=== PATIENT | female | born 1985 | race Caucasian/White ===

== ENCOUNTER 2016-12-13 10:15 | Emergency (ER) | payer OTHER ==
[~2016-12-13] VITALS: Ht 160 cm; Wt 70.9 kg
[2016-12-13 10:21] VITALS: BP 126/88; PULSE 90; RESP 10; O2SAT 100
--- NOTE | 2016-12-13 10:31 | ED.REPORT ---
HPI-Abd Pain F Under 40 Date of Service Dec 13, 2016 ED Provider: Reza Hemphill DO A 31 year old female with a history of kidney stones presents to the ED complaining of RLQ abdominal pain that began at 0400 this morning. She also reports mild discomfort during urination. Patient has never felt any similar previous abdominal pain and her pain is exacerbated by movement. Patient reports possibility of and is not currently taking control. Her last menstrual cycle was November 28. She denies fever, vomiting, diarrhea, abnormal vaginal discharge, vaginal bleeding, SOB or hematuria. Patient denies any recent trauma. Nursing Notes Stated Complaint: LOWER RIGHT ABDOMINAL AND BACK PAIN Chief Complaint: Female Abdominal Pain Nursing Notes Reviewed: Yes Allergies: Coded Allergies: amoxicillin (Verified Allergy, Intermediate, 11/05/15) bacitracin (Verified Allergy, Intermediate, 11/05/15) neomycin (Verified Allergy, Intermediate, 11/05/15) polymyxin B (Verified Allergy, Intermediate, 11/05/15) iodine (Verified Allergy, Unknown, 11/05/15) Scheduled PRN Hydrocodone-Acetaminophen 5-325 mg (Hydrocodone-Acetaminophen 5-325 mg) 1 Each Tablet 1-2 TABLET PO QID PRN PRN For Pain Ondansetron ODT (Zofran ODT) 4 Mg Tablet 4 MG PO Q4H PRN PRN For Nausea General Time Seen by MD: 10:28 Chief Complaint Abdominal pain Hx Obtained From: Patient Arrived By: Walk-in Sudden in Onset?: Yes Onset Occurred: 5 - 8 hours ago (0400) Symptom Duration: Since onset Progression since Onset: Unchanged Location: : RLQ Quality: Painful Radiation: : Does not radiate Severity: Current: Moderate Severity: Maximum: Moderate Associated with: Reports: Dysuria, Denies: Fever, Hematuria, Shortness of breath, Urinary tract symptoms, Vaginal bleeding, Vaginal discharge, Vomiting Pertinent Negative: Pt denies other symptoms Sexual History / Control: Reports Pt is sexually active, Denies control pills Exacerbated by: Movement Recent Healthcare: No recent doctor visit, No recent hospitalization Risk Factors Ectopic Risk Stratification Risk factors reviewed Past Medical History Past Medical History Anxiety Kidney Stones Past Surgical History None reported Smoking History Unknown if Ever Smoker Social History Other Social History: Good social support, Local resident Ambulatory Status Independent Review of Systems Constitutional: Denies: Chills, Fever Respiratory: Denies: Shortness of breath Cardiovascular: Denies: Chest pain GI: Reports: Abdominal pain, Denies: Diarrhea, Nausea, Vomiting Female: Reports: Dysuria (discomfort during urination ), Denies: Hematuria, Vaginal bleeding - abnl, Vaginal discharge Complete sys rev & neg: except as marked. Physical Exam Initial Vital Signs Vital Signs (First) Date Time Temp Pulse Resp B/P Pulse Ox O2 Delivery O2 Flow Rate FiO2 12/13/16 10:21 36.3 90 10 126/88 100 Room Air Initial VS: Reviewed Head / Eyes: Atraumatic, Normocephalic, PERRL Extremities: Vascular intact, Neuro intact, No swelling, No tenderness Skin: Warm, Dry, No cyanosis Neurologic: Alert, Oriented, Nonfocal Psychiatric: Mood/affect normal, Behavior normal, Normal thought content General/Constitutional: Awake, Alert, No acute distress Respiratory / Chest: Atraumatic, Breath sounds NL, Breath sounds = bilat Cardiovascular: Heart rate NL, Regular rhythm, Heart sounds NL Abdomen: Atraumatic, Soft Tenderness/Guarding/Rebound: Positive: Guarding involuntary, Tender RLQ... Back: Atraumatic, Inspection NL, No CVA tenderness Interpretation & Diagnostics Lab Results Interpretation Result Diagram: 12/13/16 1120 12/13/16 1120 Test 12/13/16 10:56 12/13/16 11:20 12/13/16 11:21 Hold Urine Received (Received) White Blood Count 5.5th/mm3 (3.8-10.1) Red Blood Count 4.56mil/mm3 (3.90-5.20) Hemoglobin 13.8g/dL (12.0-15.6) Hematocrit 40.2% (35.0-46.0) Mean Corpuscular Volume 88.2fL (81-100) Mean Corpuscular Hemoglobin 30.3pg (27.0-35.0) Mean Corpuscular Hemoglobin Concent 34.3% (32.0-37.0) Red Cell Distribution Width 12.9% (12.3-15.4) Platelet Count 259bil/L (150-400) Neutrophils (%) (Auto) 54.7% (40-74) Lymphocytes (%) (Auto) 32.4% (14-46) Monocytes (%) (Auto) 9.8% (4-12) Eosinophils (%) (Auto) 2.7% (0-5) Basophils (%) (Auto) 0.4% (0-3) Sodium Level 138mEq/L (134-144) Potassium Level 3.8mEq/L (3.5-5.2) Chloride Level 101mEq/L (97-108) Carbon Dioxide Level 24mmol/L (18-29) Blood Urea Nitrogen 9mg/dL (6-20) Creatinine 0.75mg/dL (0.57-1.00) Estimat Glomerular Filtration Rate 130mL/min (>59) Glucose Level 85mg/dL (60-99) Calcium Level 9.1mg/dL (8.5-10.1) Magnesium Level 1.8mg/dL (1.6-2.6) Total Bilirubin 0.2mg/dL (0.0-1.2) Aspartate Amino Transf (AST/SGOT) 16U/L (0-50) Alanine Aminotransferase (ALT/SGPT) 14U/L (0-32) Alkaline Phosphatase 59U/L (25-150) Total Protein 7.1g/dL (6.4-8.4) Albumin 4.4g/dL (3.4-5.0) Lipase 45U/L (13-60) Hold Beavers Top Tube Received (Received) CT Abd / Pelvis Interpretation IMPRESSION: 1. Small, 1-2 mm in diameter, bilateral, nonobstructing renal stones. 2. No hydronephrosis. 3. No evidence of appendicitis. Dictated by: Rin Rodgers MD, PhD on 12/13/2016 at 11:25 Study type: Abdominal CT no contrast Interpretation / Wet Read by: Interpret - Radiologist Re-Eval/Medical Decision Med Decision/Clinical Course Med Decision/Clinical Course: No obvious signs of appendicitis or other life-threatening pathology on CAT scan, pain improved, we will plan to discharge with pain and nausea medication and recommend very close follow-up on the off chance that this is very early appendicitis or other pathology. Re-Evaluation/Progress : Time of Eval: 11:44 Patient Status: Pain worse Re-Evaluation/Progress Note: Patient is rechecked. Her pain is still present. Repeat exam reveals mild RLQ abdominal tenderness. She is informed of her lab results, CT results and diagnosis. All of the patient's questions are adressed. She understands and agrees with the treatment plan to discharge. Counseled Regarding: Diagnosis, Lab results, Need for follow-up, When/why to return to ED Discharge & Departure Primary Impression: Nonspecific abdominal pain Disposition: Home Discharge Condition All VS Reviewed: Yes Condition: Improved Patient Instructions: Appendicitis (ED) Additional Instructions: Thank you for trusting us with your care this morning. Your lab work and abdominal CT is reassuring that there is no dangerous cause for concern at this time. Please take 1-2 Zofran every 8 hours as needed for nausea and take Vicodin as prescribed. I recommend you follow up in the next 12-24 hours for a recheck in the ER. Please return to the emergency department sooner for any new or worsening conditions including any high fever, chills, severe abdominal pain, or lethargy. Referrals: Alyssa Sheffield (PCP) Berta Attestation Portions of this note were transcribed by Chava Swartz. I, Dr. Hemphill personally performed the history, physical exam and medical decision-making; I reviewed and confirmed the accuracy of the information in the transcribed note. Signed by: Berta Roman, 12/13/16 [id number]. copies to: Alyssa Sheffield Timothy S DO Dec 13, 2016 10:30 CHAVA SWARTZ Dec 13, 2016 10:41
[2016-12-13] MEDS ORDERED: 0.9% Sodium Chloride 1,000 ML IV ONE (10:44)
[2016-12-13] MEDS ORDERED: Ondansetron 2 mg/mL 2 mL Inj IVPUSH PRN (10:45)
[2016-12-13] MEDS ORDERED: Ketorolac 15 mg/mL Inj IVPUSH ONE (10:45)
[2016-12-13] MEDS ORDERED: HYDROmorphone 0.5 mg/0.5 mL iSecure Syringe IVPUSH PRN (10:45)
[2016-12-13 11:26] LABS: BASOPHILS % (AUTO) 0.4 % (0-3); EOSINOPHILS % (AUTO) 2.7 % (0-5); MONOCYTES % (AUTO) 9.8 % (4-12); Mean Corpuscular Hemoglobin 30.3 pg (27.0-35.0); Mean Corpuscular Volume 88.2 fL (81-100); NEUTROPHILS % (AUTO) 54.7 % (40-74); Platelet Count 259 bil/L (150-400)
--- NOTE | 2016-12-13 11:32 | DRSVH ---
PROCEDURE: CT KUB ([id number]) INDICATIONS: RLQ pain, iodine allergy TECHNIQUE: Noncontrast 5 mm thick sections acquired from the diaphragms to the symphysis. 5 mm thick coronal an d sagittal reformats were then performed. For radiation dose reduction, the following was used: aut omated exposure control, adjustment of mA and/or kV according to patient size. COMPARISON: None. FINDINGS: Image quality: Excellent. Lung bases: Lung bases are clear. Heart size is normal. Urinary system: Both kidneys are normal in size. Small, approximately 1-2 mm in diameter nonobstruct ing right renal stones are noted. Small, approximately 1 mm diameter nonobstructing left renal stone s are noted. No hydronephrosis or perinephric fat stranding. Both ureters appear non-dilated throug hout their expected courses. Bladder wall thickness is normal; no calcified bladder stones. Other solid organs: Liver and spleen are normal in size. Gallbladder is within normal limits. Panc reas is normal in contours. No adrenal nodules. Peritoneum and bowel: Unenhanced bowel loops demonstrate normal wall thickness and caliber. Small a mount free fluid noted in the pelvis which is within physiologic limits for female reproductive age. No free air. The appendix is normal. Nodes and vessels: No retroperitoneal or mesenteric adenopathy by size criteria. Aorta and inferior vena cava are normal in caliber. Abdominal wall: No ventral hernias. Pelvis: No free pelvic fluid. No inguinal hernias or adenopathy. Bones: No suspicious bony lesions. No vertebral body compression fractures. IMPRESSION: 1. Small, 1-2 mm in diameter, bilateral, nonobstructing renal stones. 2. No hydronephrosis. 3. No evidence of appendicitis. Dictated by: Rin Rodgers MD, PhD on 12/13/2016 at 11:25 Approved by: Rin Rodgers MD, PhD on 12/13/2016 at 11:30
[2016-12-13 11:56] LABS: Magnesium 1.8 mg/dL (1.6-2.6)
[2016-12-13] MEDS ORDERED: ONDA4TAB9 PO (12:18)
[2016-12-13] MEDS ORDERED: HYDR-4003 PO (12:18)
[2016-12-13 12:32] VITALS: BP 122/79; PULSE 82; RESP 16; O2SAT 100
== END 2016-12-13 12:47 | disposition home or self-care (01) ==
LOC: SED 10:15
DX: R10.31 Right lower quadrant pain (principal); Z87.442 Personal history of urinary calculi; Z88.1 Allergy status to other antibiotic agents; Z88.8 Allergy status to other drugs, medicaments and biological substances; Z91.041 Radiographic dye allergy status
CPT/HCPCS: 36415; 74176; 80053; 81002; 81025; 83690; 83735; 85025; 96361; 96374; 96375; 99285; J1170; J1885; J2405; J7030

== ENCOUNTER 2017-02-04 18:00 | Emergency (ER) | payer OTHER ==
[~2017-02-04] VITALS: Ht 160 cm; Wt 67.7 kg
[~2017-02-04 18:00] MED LIST: HYDR-4003 PO; ONDA4TAB9 PO
[2017-02-04 18:05] VITALS: BP 123/84; PULSE 74; RESP 20; O2SAT 100
[2017-02-04] MEDS ORDERED: 0.9% Sodium Chloride 1,000 ML IV ONE ×2 (18:57→20:15)
[2017-02-04] MEDS ORDERED: Magnesium Sulf 2 Gm/50mL Water 2 GM in IV Premix 1 EACH IV ONE (19:00)
[2017-02-04] MEDS ORDERED: MetoCLOpramide 5 mg/mL 2 mL Inj IVPUSH ONE (19:00)
[2017-02-04] MEDS ORDERED: Dexamethasone 10 mg/mL Inj IVPUSH ONE (19:00)
--- NOTE | 2017-02-04 19:00 | ED.REPORT ---
HPI-Headache Date of Service February 04, 2017 ED Provider: Imer Murillo PA-C Otherwise healthy 31-year-old female presenting with chief complaint of headache. She reports this began about 4 hours ago first notices a mild headache that rapidly progressed to severe headache over approximately one half hour. Patient felt that she would collapse. Associated with blurred vision, photophobia. Describes her headache as throbbing in the midline of her forehead. Denies history of migraines or similar headaches. Admits nausea, denies vomiting. Denies recent chiropractic manipulations. Denies fever, chest pain, palpitation, shortness of breath, cough, wheeze, rash, neck stiffness. She reports headache is improving at time of presentation. Nursing Notes Stated Complaint: HEAD PAIN, NAUSEA, DIZZINESS Chief Complaint: Headache Nursing Notes Reviewed: Yes Allergies: Coded Allergies: amoxicillin (Verified Allergy, Intermediate, 11/05/15) bacitracin (Verified Allergy, Intermediate, 11/05/15) neomycin (Verified Allergy, Intermediate, 11/05/15) polymyxin B (Verified Allergy, Intermediate, 11/05/15) iodine (Verified Allergy, Unknown, 11/05/15) Scheduled PRN Hydrocodone-Acetaminophen 5-325 mg (Hydrocodone-Acetaminophen 5-325 mg) 1 Each Tablet 1-2 TABLET PO QID PRN PRN For Pain Ondansetron ODT (Zofran ODT) 4 Mg Tablet 4 MG PO Q4H PRN PRN For Nausea General Time Seen by MD: 18:52 Chief Complaint Headache Sudden in Onset?: Yes Past Medical History Past Medical History Anxiety Kidney Stones Past Surgical History None reported Smoking History Unknown if Ever Smoker Social History Other Social History: Good social support, Local resident Ambulatory Status Independent Review of Systems Review of Systems Note: Negative unless stated otherwise in history of present illness Physical Exam General: Well appearing, well developed, well nourished, no acute distress. Head: Atraumatic, normocephalic. Eyes: No scleral icterus or injection. No discharge. Vision grossly intact. ENT: Voice clear, hearing grossly intact. Respiratory: Regular rate and rhythm. Breath sounds present, clear to auscultation and equal bilaterally. No respiratory distress. No increased work of breathing, speaks in complete sentences. Cardiovascular: Regular rate and rhythm, without murmur, gallop or rub. No pedal edema. Gastrointestinal: Abdomen flat and non-tender without guarding or rebound. Bowel sounds normoactive. Skin: Warm and dry. Neurological: Normal heel-zamarripa, finger-nose, rapid hand. Negative pronator drift. Cranial nerves: Vision grossly intact, PERRL, EOMI. Facial motion symmetrical, sensation to light touch over forehead, maxilla and mandible present and equal B /L. Voice clear and fluent, no drooling/pooling of saliva, uvula rises midline. Psychological: Alert and oriented. Speech appropriate, linear and logical. Behavior appropriate. Initial Vital Signs Vital Signs (First) Date Time Temp Pulse Resp B/P Pulse Ox O2 Delivery O2 Flow Rate FiO2 02/04/17 18:05 37.4 74 20 123/84 100 Room Air Initial VS: Vital signs normal Interpretation & Diagnostics Lab Results Interpretation Result Diagram: 02/04/17185402/04/171854 Test 02/04/17 18:55 02/04/17 19:39 02/04/17 22:45 White Blood Count 4.8th/mm3 (3.8-10.1) Red Blood Count 4.43mil/mm3 (3.90-5.20) Hemoglobin 13.4g/dL (12.0-15.6) Hematocrit 38.8% (35.0-46.0) Mean Corpuscular Volume 87.6fL (81-100) Mean Corpuscular Hemoglobin 30.2pg (27.0-35.0) Mean Corpuscular Hemoglobin Concent 34.5% (32.0-37.0) Red Cell Distribution Width 12.8% (12.3-15.4) Platelet Count 236bil/L (150-400) Neutrophils (%) (Auto) 45.4% (40-74) Lymphocytes (%) (Auto) 40.2% (14-46) Monocytes (%) (Auto) 10.9% (4-12) Eosinophils (%) (Auto) 2.9% (0-5) Basophils (%) (Auto) 0.4% (0-3) Sodium Level 141mEq/L (134-144) Potassium Level 3.7mEq/L (3.5-5.2) Chloride Level 104mEq/L (97-108) Carbon Dioxide Level 23mmol/L (18-29) Blood Urea Nitrogen 13mg/dL (6-20) Creatinine 0.70mg/dL (0.57-1.00) Estimat Glomerular Filtration Rate 141mL/min (>59) Glucose Level 103mg/dL (60-99) Calcium Level 9.5mg/dL (8.5-10.1) Hold Baevers Top Tube Received (Received) Hold Urine Received (Received) CSF Appearance Clear (CLEAR) CSF Color Colorless (COLORLESS) CSF WBC 0/mm3 (0-5) CSF RBC 82/mm3 CSF Mononuclear WBCs % CSF Polynuclear WBCs % CSF Other Cells CSF Glucose 59mg/dL (45-90) CSF Total Protein 24mg/dL (15-45) CT Head Interpretation PROCEDURE: CT BRAIN WITHOUT CONTRAST ([id number]) INDICATIONS: headache IMPRESSION: 1. No acute intracranial abnormalities. Interpretation / Wet Read by: Interpret - Radiologist, Interp - P Procedures Lumbar Puncture Text / Dict Note: Performed by Dr. Cox Time: 22:50 Procedure Performed by: ED physician (Dr. Cox) Consent / Setup / Site Prep: Informed consent provided, Consent from patient , Time-out performed, Hand hygiene observed, Stand sterile technique, Sterile drapes applied Skin Preparation Agent: Hibiclens - Chlorhexidine Local Anesthesia: Lidocaine 1% Inserted Needle at: L3 L4 Post-Procedure / Complications: Antibiotic oint applied, Dressing applied, No complications, Tolerated procedure well, Patient stable Re-Eval/Medical Decision Re-Evaluation/Progress #1: Time of Eval: 21:33 Re-Evaluation/Progress Note: Patient resolved her headache has resolved but she is quite drowsy. Discussed normal CT findings, offered lumbar puncture. Patient consents to lumbar puncture. Re-Evaluation/Progress #2: Time of Eval: 22:50 Re-Evaluation/Progress Note: Pt care transferred to Dr. Cox. Lumbar puncture performed by Dr. Cox with pt consent. Re-Evaluation/Progress #3: Time of Eval: 23:34 Re-Evaluation/Progress Note: Pt rechecked. Discussed plan to re-evaluate labs due to RBC in CSF. Discussed possibility of CTA. Pt understands and agrees with plan. Discharge & Departure Shift Change Sign-Out Patient Care Transferred: Yes (Dr. Cox) Discussed Complaint(s): Yes Laboratory Evaluation: Lab evaluation discussed Imaging Studies: Imaging discussed Response to Therapy: Improved, Discussed Impression: Primary Impression: Headache Headache type: primary thunderclap headache Qualified Code: G44.53 - Primary thunderclap headache Disposition: Home Discharge Condition All VS Reviewed: Yes Condition: Stable Patient Instructions: Acute Headache (GEN) Additional Instructions: The CAT scan and cerebrospinal fluid were normal. No signs of a tumor, hemorrhage or infection. Read the aftercare instructions on headache given. You may have some back pain tomorrow for which you may take 1-2 [place] every 6 hours. Drink caffeinated beverages to help prevent spinal headache. Stay well hydrated. Rest tomorrow. Return if any problems or any worsening symptoms. Do not drive or drink or consume acetaminophen while taking the [place]. Take 1 Zofran every 8 hours for any nausea you may have. Referrals: Alyssa Sheffield (PCP) EDSupervising Provider for APC: Shalom Cox Attestation Portions of this note were transcribed by Michaela Douglas. I, Dr. Cox personally performed the history, physical exam and medical decision-making; I reviewed and confirmed the accuracy of the information in the transcribed note. Signed by : Berta Miranda, 02/04/17 and [id number]. Attending Statement I took a history of performing exam. I concur that a lumbar puncture was necessary to rule out subarachnoid hemorrhage. Ensure this a 31-year-old female who developed abrupt onset/thunderclap headache. Headache is unlike anything she suffered with before. CT scan was normal. Labs are reassuring. I performed a meticulously sterile lumbar puncture with one attempt. Normal opening and closing pressures. She tolerated it well. CSF showed no white or 80 reds in tube 3 this when and 8 reds in tube 4. This is consistent with a traumatic tap not consistent with subarachnoid hemorrhage. She will be discharged home. Take home pack of [place] provided for the pain at the lumbar puncture may cause. Close outpatient follow-up recommended. copies to: Alyssa Sheffield Seth PA-C February 04, 2017 18:59 MICHAELA DOUGLAS February 04, 2017 22:59 Shalom Cox DO February 04, 2017 23:22
[2017-02-04 19:08] LABS: BASOPHILS % (AUTO) 0.4 % (0-3); EOSINOPHILS % (AUTO) 2.9 % (0-5); MONOCYTES % (AUTO) 10.9 % (4-12); Mean Corpuscular Hemoglobin 30.2 pg (27.0-35.0); Mean Corpuscular Volume 87.6 fL (81-100); NEUTROPHILS % (AUTO) 45.4 % (40-74); Platelet Count 236 bil/L (150-400)
[2017-02-04] MEDS ORDERED: Dexamethasone Inj 10 MG in 0.9% Sodium Chloride 50 ML IV ONE (19:15)
--- NOTE | 2017-02-04 21:19 | DRSVH ---
PROCEDURE: CT BRAIN WITHOUT CONTRAST ([id number]) INDICATIONS: headache TECHNIQUE: Noncontrast 4.5 mm thick angled axial sections acquired from the foramen magnum to the vertex, with c oronal reformats. COMPARISON: None. FINDINGS: Image quality: Excellent. CSF spaces: Basal cisterns are patent. No extra-axial fluid collections. Ventricles are normal in size and shape. Brain: No midline shift. No intracranial masses or hemorrhage. Molina-white matter interface is norm al. Skull and face: Calvarium and visualized facial bones are intact, without suspicious lesions. Sinuses: Visualized sinuses and mastoids are clear. IMPRESSION: 1. No acute intracranial abnormalities. Dictated by: Kristi Núñez M.D. on 02/04/2017 at 21:16 Approved by: Kristi Núñez M.D. on 02/04/2017 at 21:17
[2017-02-04 21:47] VITALS: BP 110/63; PULSE 65; RESP 14; O2SAT 98
[2017-02-04] MEDS ORDERED: _Ondansetron ODT 4 mg Tablet PO PRN (23:00)
[2017-02-04] MEDS ORDERED: _HYDROcodone/APAP 5-325 mg Tablet PO PRN (23:00)
[2017-02-04 23:29] LABS: APPEARANCE,CSF CLEAR (CLEAR); COLOR,CSF COLORLESS (COLORLESS); WHITE BLOOD CELL,CSF 0 /mm3 (0-5)
[2017-02-05 00:08] VITALS: BP 120/74; PULSE 65; RESP 16; O2SAT 99
== END 2017-02-04 23:24 | disposition home or self-care (01) ==
LOC: SED 18:00
DX: G44.53 Primary thunderclap headache (principal); Z88.1 Allergy status to other antibiotic agents; Z88.8 Allergy status to other drugs, medicaments and biological substances
CPT/HCPCS: 36415; 62270; 70450; 80048; 81025; 82945; 84155; 85025; 87070; 87205; 89051; 96361; 96374; 96375; 99285; J1100; J1200; J2765; J7030